=== PATIENT | female | born 1980 | race African-American/Black ===

== ENCOUNTER 2020-03-11 16:06 | Observation (INO) | payer MEDICAID ==
[~2020-03-11] VITALS: Ht 172.7 cm; Wt 99.8 kg
[2020-03-11 18:15] LABS: CLARITY URINE CLEAR (CLEAR); COLOR URINE YELLOW (YELLOW); KETONES URINE NEGATIVE (NEGATIVE); LEUKOCYTE ESTERASE URINE TRACE (NEGATIVE); NITRITE URINE NEGATIVE (NEGATIVE); OCCULT BLOOD URINE TRACE (NEGATIVE); PH URINE 6.5 (4.5-8.0); PROTEIN URINE NEGATIVE (NEGATIVE); SPECIFIC GRAVITY URINE 1.021 (1.005-1.030)
[2020-03-11] MEDS ORDERED: SODIUM CHLORIDE 0.9% 1,000 ML IV SCH (18:30)
[2020-03-11] MEDS ORDERED: CEFAZOLIN 2,000 MG in DEXT 5% WATER 100 ML IV NR (18:30)
[2020-03-11] MEDS ORDERED: ACETAMINOPHEN 500MG TABLET PO NR (21:00)
[2020-03-12] MEDS ORDERED: TERBUTALINE SULFATE 1MG/ML VIAL SUBCUT NR (01:00)
== END 2020-03-12 02:00 | disposition home or self-care (01) ==
LOC: 8 EST LDRP 16:06
PROVIDERS: ADMIT Obstetrics & Gynecology; ATTEND Specialist
DX: O26.893 Other specified pregnancy related conditions, third trimester (principal); R10.9 Unspecified abdominal pain; Z3A.34 34 weeks gestation of pregnancy
CPT/HCPCS: 59025; 76805; 76817; 76818; 81003; 96361; 96372; 96374; G0378; J0690; J3105; J7060; 59412; 96360; 99281

== ENCOUNTER 2020-03-12 19:42 | Observation (INO) | payer MEDICAID ==
[~2020-03-12] VITALS: Ht 165.1 cm; Wt 90.7 kg
[2020-03-12] MEDS ORDERED: ONDANSETRON HCL 4MG/2ML INJ IM NR (20:35)
[2020-03-12] MEDS ORDERED: LACTATED RINGERS 1,000 ML IV SCH (20:45)
[2020-03-12 21:30] LABS: CLARITY URINE CLEAR (CLEAR); COLOR URINE YELLOW (YELLOW); KETONES URINE NEGATIVE (NEGATIVE); LEUKOCYTE ESTERASE URINE NEGATIVE (NEGATIVE); NITRITE URINE NEGATIVE (NEGATIVE); OCCULT BLOOD URINE 2+ (NEGATIVE); PROTEIN URINE TRACE (NEGATIVE); SPECIFIC GRAVITY URINE 1.019 (1.005-1.030)
[2020-03-12 21:41] LABS: BASOPHILS % 0.2 % (0.0-2.0); EOSINOPHILS % 0.4 % (0.0-5.0); HEMATOCRIT. 30.2 % (36.0-48.0); HEMOGLOBIN. 10.2 g/dL (12.0-16.0); LYMPHOCYTES % 12.5 % (20.0-50.0); MEAN CORPUSCULAR HEMOGLOBIN 32.7 pg (28.0-32.0); MEAN CORPUSCULAR VOLUME 96.4 fL (81.0-99.0); MEAN PLATELET VOLUME 9.4 fl (7.4-10.4); MONOCYTES % 8.9 % (2.0-8.0); PLATELET 185 x1000/uL (130-400); RED BLOOD CELL COUNT 3.13 mill/uL (4.2-5.4)
[2020-03-12 21:45] LABS: *AMPHETAMINES SCREEN URINE NEGATIVE (NEGATIVE)
[2020-03-12 21:46] LABS: *BARBITURATES SCREEN URINE NEGATIVE (NEGATIVE); *BENZODIAZEPINES SCREEN URINE NEGATIVE (NEGATIVE); *COCAINE SCREEN URINE NEGATIVE (NEGATIVE); METHADONE URINE SCREEN NEGATIVE (NEGATIVE); OPIATES URINE SCREEN NEGATIVE (NEGATIVE); PHENCYCLIDINE URINE SCREEN NEGATIVE (NEGATIVE)
[2020-03-12 22:00] LABS: CANNABINOID URINE SCREEN PRESUMTIVE POSITIVE (NEGATIVE)
[2020-03-12 22:06] LABS: HEPATITIS B SURFACE ANTIGEN NEGATIVE
[2020-03-12] MEDS ORDERED: RHO(D) IMMUNE GLOBULIN 300 MCG/SYR IM NR ×2 (23:05)
[2020-03-17 14:10] LABS: CANNABINOID CONFIRMATION URINE Positive (.)
== END 2020-03-12 23:15 | disposition home or self-care (01) ==
LOC: 8 EST LDRP 19:42
PROVIDERS: ADMIT Obstetrics & Gynecology; ATTEND Obstetrics & Gynecology
DX: O26.893 Other specified pregnancy related conditions, third trimester (principal); O21.9 Vomiting of pregnancy, unspecified; R10.30 Lower abdominal pain, unspecified; Z3A.34 34 weeks gestation of pregnancy; Z79.899 Other long term (current) drug therapy
CPT/HCPCS: 36415; 59025; 80305; 80349; 81003; 82731; 85025; 86592; 86703; 86762; 86850; 86900; 86901; 87340; 90384; 96360; 96361; 96372; G0378; J2405; 99281

== ENCOUNTER 2020-05-09 14:19 | Observation (INO) | payer MEDICAID ==
[~2020-05-09] VITALS: Ht 172.7 cm; Wt 104.3 kg
== END 2020-05-09 23:50 | disposition home or self-care (01) ==
LOC: 8 EST LDRP 14:19
PROVIDERS: ADMIT Obstetrics & Gynecology; ATTEND Obstetrics & Gynecology
DX: O48.0 Post-term pregnancy (principal); O26.893 Other specified pregnancy related conditions, third trimester; R10.9 Unspecified abdominal pain; Z3A.40 40 weeks gestation of pregnancy
CPT/HCPCS: 59025; 76815; 76818; G0378; 99281

== ENCOUNTER 2020-05-11 15:23 | Observation (INO) | payer MEDICAID ==
[2020-05-16] MEDS ORDERED: FERR325T23 PO (07:04)
[2020-05-16] MEDS ORDERED: IBUP-2030 PO (07:04)
[2020-05-16] MEDS ORDERED: NORE0.3520 MT (07:04)
== END 2020-05-11 16:55 | disposition home or self-care (01) ==
LOC: 8 EST LDRP 15:23
PROVIDERS: ADMIT Obstetrics & Gynecology; ATTEND Obstetrics & Gynecology
DX: O62.9 Abnormality of forces of labor, unspecified (principal); Z3A.40 40 weeks gestation of pregnancy
CPT/HCPCS: 59025; 96360; G0378; 99281

== ENCOUNTER 2020-12-15 21:05 | Emergency (ER) | payer OTHER, MEDICAID ==
[~2020-12-15] VITALS: Ht 172.7 cm; Wt 91.0 kg
[~2020-12-15 21:05] MED LIST: FERR325T23 PO; IBUP-2030 PO; NORE0.3520 MT
[2020-12-16 02:56] LABS: BASOPHILS % 0.2 % (0.0-2.0); CHLORIDE 107 mEq/L (98-107); EOSINOPHILS % 0.5 % (0.0-5.0); HEMATOCRIT. 31.6 % (36.0-48.0); HEMOGLOBIN. 10.8 g/dL (12.0-16.0); LYMPHOCYTES % 25.2 % (20.0-50.0); MEAN CORPUSCULAR HEMOGLOBIN 30.9 pg (28.0-32.0); MEAN CORPUSCULAR VOLUME 90.3 fL (81.0-99.0); MEAN PLATELET VOLUME 8.4 fl (7.4-10.4); NEUTROPHILS % 60.1 % (40.0-76.0); PLATELET 206 x1000/uL (130-400)
[2020-12-16 03:39] LABS: CLARITY URINE CLOUDY (CLEAR); COLOR URINE DARK YELLOW (YELLOW); KETONES URINE TRACE (NEGATIVE); LEUKOCYTE ESTERASE URINE 2+ (NEGATIVE); NITRITE URINE POSITIVE (NEGATIVE); OCCULT BLOOD URINE 2+ (NEGATIVE); PH URINE 5.5 (4.5-8.0); PROTEIN URINE 2+ (NEGATIVE); SPECIFIC GRAVITY URINE 1.017 (1.005-1.030)
[2020-12-16] MEDS ORDERED: CEPH500C2 MT (04:55)
[2020-12-16 05:25] VITALS: BP 138/94
== END 2020-12-16 05:44 | disposition home or self-care (01) ==
LOC: ER 22:12
DX: N39.0 Urinary tract infection, site not specified (principal); Z20.822 Contact with and (suspected) exposure to COVID-19
CPT/HCPCS: 36415; 71045; 80053; 81003; 81025; 85025; 87077; 87186; 87426; 93005; 99285

== ENCOUNTER 2022-12-23 19:17 | Observation (INO) | payer OTHER ==
[~2022-12-23] VITALS: Ht 172.7 cm; Wt 158.8 kg
[~2022-12-23 19:17] MED LIST changes: +CEPH500C2 MT
== END 2022-12-23 21:45 | disposition home or self-care (01) ==
LOC: 8 EST LDRP 19:17
PROVIDERS: ADMIT Obstetrics & Gynecology; ATTEND Obstetrics & Gynecology
DX: O26.893 Other specified pregnancy related conditions, third trimester (principal); R10.9 Unspecified abdominal pain; Z3A.39 39 weeks gestation of pregnancy
CPT/HCPCS: 59025; 93970; 76818; 76805; G0378 ×2